=== PATIENT | male | born 1995 | race Caucasian/White ===

== ENCOUNTER 2017-08-08 09:09 | Emergency (ER) | payer OTHER ==
[~2017-08-08] VITALS: Ht 177.8 cm; Wt 72.0 kg
[2017-08-08 09:23] VITALS: TEMP 36.6; Ht 177.8 cm; Wt 72.0 kg
[2017-08-08] MEDS ORDERED: PNC/500 PO (09:32)
[2017-08-08] MEDS ORDERED: ONDANSETRON INJ 2 MG/ML 2 ML VIAL IV STA (09:39)
[2017-08-08] MEDS ORDERED: SODIUM CHLORIDE 0.9% 1000ML 1,000 ML IV STA (09:39)
[2017-08-08 10:06] LABS: BASO % 0.6 %; BASO ABS # 0.05 K/uL (0-0.2); COMPLETE YES; IG% 0.7 %; LYMPH % 30.5 %; LYMPH ABS # 2.47 K/uL (1.2-3.4); MEAN CORPUSCULAR HEMOGLOBIN 29.8 pg (25-34); MEAN CORPUSCULAR HGB CONC 34.7 g/dl (32-36); MEAN PLATELET VOLUME 10.1 fL (7.4-10.4); MONO % 8.6 %; NEUT % 57.6 %; PLATELET COUNT 254 K/uL (130-400)
[2017-08-08 10:28] LABS: CALCIUM 9.6 mg/dl (8.5-10.1); CREATININE 0.93 mg/dl (0.60-1.40); POTASSIUM 3.8 mmol/L (3.5-5.1)
--- NOTE | 2017-08-08 10:36 | DIAGNOSTIC IMAGING REPORT ---
CHEST 2 VIEWS ROUTINE HISTORY: 21 years-old Male ABDOMINAL PAIN/GI acute generalized abdominal pain. COMPARISON: None available TECHNIQUE: Frontal and lateral views of the chest FINDINGS: Cardiomediastinal and hilar silhouettes are within normal limits. No pneumothorax, pleural effusion or focal airspace consolidation. No overt pulmonary edema. Bones of the chest are grossly intact. Upper abdomen appears unremarkable. IMPRESSION: No acute cardiopulmonary process. The above report was generated using voice recognition software. It may contain grammatical, syntax or spelling errors. Electronically signed by: Calin Muro M.D. 08/08/2017 10:34 AM Dictated Date/Time: 08/08/2017 10:33 AM
[2017-08-08 10:50] LABS: URINE APPEARANCE CLEAR (CLEAR); URINE BILIRUBIN NEG (NEG); URINE COLOR YELLOW; URINE NITRITE NEG (NEG); URINE PH 6.5 (4.5-7.5); URINE SPECIFIC GRAVITY 1.028 (1.000-1.030); UROBILINOGEN NEG (NEG)
[2017-08-08 11:01] LABS: MANUAL MICROSCOPIC REQUIRED? NO; REVIEW REQ? NO
--- NOTE | 2017-08-08 12:16 | DIAGNOSTIC IMAGING REPORT ---
ABDOMINAL ULTRASOUND, RIGHT UPPER QUADRANT HISTORY: Abdominal pain. COMPARISON: None. FINDINGS: Liver is sonographically normal. There is no biliary ductal dilatation. There are no gallstones. The pancreas is within normal limits. No right hydronephrosis is present. IMPRESSION: No significant abnormality identified within the right upper quadrant. Electronically signed by: Kuldip Pond M.D. 08/08/2017 12:15 PM Dictated Date/Time: 08/08/2017 12:14 PM
[2017-08-08 13:35] VITALS: BP 129/83; PULSE 56; O2SAT 98
--- NOTE | 2017-08-08 17:09 | EMERGENCY ROOM VISIT NOTE ---
ED Visit Note First contact with patient: 09:23 Chief Complaint: I've been having really bad upper abdominal pain for the last 3 days. History of Present Illness: Mr. Uribe is a 21 year-old white male who ambulates into the ED complaining of epigastric abdominal pain. Historically patient reports no significant gastrointestinal diseases and had a left inguinal hernia repair when he was 1 years old. He also reports he was just recently diagnosed with streptococcal pharyngitis and placed on penicillin. Patient reports over last 2 days he has been having intermittent epigastric pain. He reports typically after reading but sometime on its own he develops gradually building pain in the epigastric area. The pain lasts for approximately 3-4 minutes and then self resolves. He describes his pain as a cramping sensation. He feels it's more prominent when he eats fatty foods. His pain is nonradiating. At its worse he rates his discomfort 9/10; currently he was pain-free. He reports taking Tums and Gas-X without relief of his discomfort. Associated with his pain he becomes nauseated but does not vomit and intermittently becomes diaphoretic. Patient denies fevers, chills, sweats, skin eruptions, skin color changes, upper respiratory tract symptoms, shortness of breath, chest pain, diarrhea, constipation, rectal bleeding, black/tarry stools, urinary symptoms, hematuria, vaginal bleeding, vaginal discharge, back/flank pain. Review of Systems: As noted above in history of present illness. All body systems were reviewed and found to be negative as noted above. Past Medical History: As noted above and pneumonia. Current Medications: Alyssa Schaefer Allergies to Medications: Patient denies. Social History: Patient is University student; he feels safe in his home environment; he denies tobacco use and admits to alcohol use. Physical Examination: Vital Signs: Date Time Temp Pulse Resp B/P (MAP) Pulse Ox O2 Delivery O2 Flow Rate FiO2 08/08/17 13:35 56 16 129/83 98 08/08/17 11:36 52 16 124/67 97 Room Air 08/08/17 09:23 36.6 73 16 132/75 97 Room Air GENERAL: 21-year-old male in no acute distress, nontoxic-appearing, afebrile and hemodynamically stable. NEUROLOGICAL: Awake, alert and oriented to person, place and time. Answering questions appropriately and following commands. Normal gait. Good hand eye coordination. SKIN: Warm, moist and pink. No soft tissue eruptions or trauma noted. HEENT: Atraumatic and normocephalic. PERRLA. Sclera white and conjunctiva pink. Oral cavity moist and pink. Pharynx is nonerythematous or edematous. Speech normal. No lymphadenopathy. Trachea midline. No jugular venous distention. BACK: No tenderness over the bony spine. No CVA tenderness. THORAX: Lungs sounds are clear to auscultation and equal bilaterally with symmetrical chest wall. No wheezing, rales or rhonchi. No crepitus, tenderness , subcutaneous air or deformities noted. HEART: Regular rate and rhythm. No gallops, rubs or murmurs are appreciated. ABDOMEN: Flat, soft and nontender. Positive bowel sounds in all quadrants. No guarding, rigidity or organomegaly. EXTREMITIES: Moves all extremities well on command and with purpose. All distal neurovascular statuses are intact and equal bilaterally. ED Course: Patient is assessed as noted above. Laboratory Testing: Test 08/08/17 09:25 08/08/17 10:30 Range/Units White Blood Count 8.10 4.8-10.8 K/uL Red Blood Count 5.00 4.7-6.1 M/uL Hemoglobin 14.9 14.0-18.0 g/dL Hematocrit 43.0 42-52 % Mean Corpuscular Volume 86.0 80-100 fL Mean Corpuscular Hemoglobin 29.8 25-34 pg Mean Corpuscular Hemoglobin Concent 34.7 32-36 g/dl Platelet Count 254 130-400 K/uL Mean Platelet Volume 10.1 7.4-10.4 fL Neutrophils (%) (Auto) 57.6 % Lymphocytes (%) (Auto) 30.5 % Monocytes (%) (Auto) 8.6 % Eosinophils (%) (Auto) 2.0 % Basophils (%) (Auto) 0.6 % Neutrophils # (Auto) 4.66 1.4-6.5 K/uL Lymphocytes # (Auto) 2.47 1.2-3.4 K/uL Monocytes # (Auto) 0.70 0.11-0.59 K/uL Eosinophils # (Auto) 0.16 0-0.5 K/uL Basophils # (Auto) 0.05 0-0.2 K/uL RDW Standard Deviation 39.4 36.4-46.3 fL RDW Coefficient of Variation 12.4 11.5-14.5 % Immature Granulocyte % (Auto) 0.7 % Immature Granulocyte # (Auto) 0.06 0.00-0.02 K/uL Sodium Level 142 136-145 mmol/L Potassium Level 3.8 3.5-5.1 mmol/L Chloride Level 104 98-107 mmol/L Carbon Dioxide Level 33 21-32 mmol/L Anion Gap 5.0 3-11 mmol/L Blood Urea Nitrogen 11 7-18 mg/dl Creatinine 0.93 0.60-1.40 mg/dl Est Creatinine Clear Calc Drug Dose 126.9 ml/min Estimated GFR () 134.6 Estimated GFR (Non- 116.1 BUN/Creatinine Ratio 12.0 10-20 Random Glucose 113 70-99 mg/dl Calcium Level 9.6 8.5-10.1 mg/dl Total Bilirubin 0.4 0.2-1 mg/dl Direct Bilirubin 0.1 0-0.2 mg/dl Aspartate Amino Transf (AST/SGOT) 26 15-37 U/L Alanine Aminotransferase (ALT/SGPT) 29 12-78 U/L Alkaline Phosphatase 66 45-117 U/L Total Protein 7.6 6.4-8.2 gm/dl Albumin 3.9 3.4-5.0 gm/dl Lipase 191 73-393 U/L Urine Color YELLOW Urine Appearance CLEAR CLEAR Urine pH 6.5 4.5-7.5 Urine Specific [place] 1.028 1.000-1.030 Urine Protein NEG NEG Urine Glucose (UA) NEG NEG Urine Ketones NEG NEG Urine Occult Blood TRACE NEG Urine Nitrite NEG NEG Urine Bilirubin NEG NEG Urine Urobilinogen NEG NEG Urine Leukocyte Esterase NEG NEG Urine WBC (Auto) 1-5 0-5 /hpf Urine RBC (Auto) 0-4 0-4 /hpf Urine Hyaline Casts (Auto) 1-5 0-5 /lpf Urine Epithelial Cells (Auto) 10-20 0-5 /lpf Urine Bacteria (Auto) NEG NEG Gallbladder Ultrasound: Was reviewed by myself and read by the radiologist showing no significant abnormalities identified in the right upper quadrant. Chest X-Rays: Was read by myself and the radiologist showing no acute infiltrates, effusions or pneumothorax. Normal heart silhouette and bony anatomy. No free air under the diaphragm. Patient was hydrated with normal saline and he received 4 mg of Zofran IV for nausea; he refused pain medications. Patient was reassessed multiple times during his stay in the emergency department. Patient's case was reviewed with Dr. Rome; we agreed on diagnostic approach, treatment, disposition and plan. Patient was educated about today's findings and instructed on his treatment plan ; he verbalizes understanding and agreement with this plan. Clinical Impression: Acute right upper quadrant abdominal pain. Decision-Making: Initially my differential diagnosis I considered hepatitis, pancreatitis, cholecystitis, bowel obstruction, constipation, perforated viscus , pneumonia and other causes. Disposition: Patient discharged home in stable condition; prior to departure he was reassessed and subjectively reported he was feeling better. He rated his discomfort 2/10 and reported resolution of nausea. Just prior to discharge patient did request that I speak to his father about today's ED visit; spoke to the patient's father informed him of his sons ED visit and reviewed all his testing. Plan: Patient was encouraged use 650 mg of acetaminophen every 6 hours as needed for pain. Patient was encouraged to use a bland diet for the next 48 hours. Patient is encouraged to avoid stomach irritants. Patient was encouraged a well-hydrated with increased clear fluids. Patient was encouraged to keep a diary over the next few days of his symptoms. Patient was encouraged follow-up with his primary care provider for recheck and possible referral to gastroenterology. Patient was encouraged return ED for worsening/uncontrolled pain, vomiting, bloody stools, fevers or any new/concerning symptoms.
== END 2017-08-08 13:37 | disposition home or self-care (01) ==
LOC: C.EDB 09:12 → C.EDA 13:37
DX: R10.11 Right upper quadrant pain (principal); Z87.01 Personal history of pneumonia (recurrent); Z98.890 Other specified postprocedural states